=== PATIENT | male | born 1960 | race Caucasian/White ===

== ENCOUNTER 2020-11-30 12:59 | Observation (INO) | payer OTHER ==
[2020-11-30] MEDS ORDERED: NITROGLYCERIN OINT 1 INCH/GM PACKET TOPICAL STA (13:18)
[2020-11-30] MEDS ORDERED: ASPIRIN 81 MG PO STA ×2 (13:18→21:21)
--- NOTE | 2020-11-30 13:31 | ED ---
Chest Pain HPI - General Chief Complaint: Chest Pain Stated Complaint: Chest Pain Time Seen by Provider: 11/30/20 13:10 Source: patient, EMS Mode of arrival: EMS Limitations: no limitations - History of Present Illness Initial Comments: This 60-year-old male presents with a complaint of some chest pain. He describes this in his bilateral chest and described as a burning and pressure type sensation. The onset occurred approximately 3 days ago and it is been intermittent since. He states that he had some mild facial numbness. He has chronic neck pain. He does have a history of previous peptic ulcer disease and hiatal hernia and complains of some stomach upset at times as well. He denies any shortness of breath or difficulty in breathing. He does have a history of remote CABG and had cardiac stenting 3 years ago. He believes he had a stress test since then. He does present via ambulance and relates that he receive some sublingual nitroglycerin and route which may have helped somewhat. No other complaints or modifying factors. There is no leg pain or swelling or history DVT or PE. - Related Data Home Medications Medication Instructions Recorded Confirmed Aspirin EC [Ecotrin Low Dose] 81 mg PO DAILY 11/30/20 11/30/20 Isosorbide Mononitrate ER [Imdur] 30 mg PO DAILY 11/30/20 11/30/20 Metoprolol Succinate (ER) [Toprol 25 mg PO DAILY 11/30/20 11/30/20 Xl] lisinopriL 40 mg PO DAILY 11/30/20 11/30/20 Allergies Allergy/AdvReac Type Severity Reaction Status Date / Time codeine Allergy Unknown Verified 11/30/20 13:49 Review of Systems ROS Statement: Those systems with pertinent positive or pertinent negative responses have been documented in the HPI. ROS Other: All systems not noted in ROS Statement are negative. Past Medical History Past Medical History: Hyperlipidemia, Hypertension, Myocardial Infarction ([place]) History of Any Multi-Drug Resistant Organisms: None Reported Past Surgical History: Coronary Bypass/CABG, Heart Catheterization With Stent Past Psychological History: No Psychological Hx Reported Smoking Status: Current every day smoker Past Alcohol Use History: Occasional Past Drug Use History: None Reported General Exam - General Exam Comments Initial Comments: GENERAL: The patient is well nourished and well hydrated. VITAL SIGNS: Heart rate, blood pressure, respiratory rate reviewed as recorded i n nurse's notes. EYES: Pupils are round and reactive. Extraocular movements are intact. No conjunctival / lid redness or swelling. ENT: No external evidence of injury, swelling, or ecchymosis. Airway is patent. Throat is clear. NECK: Nontender. No swelling or evidence of injury. No subcutaneous emphysema. Trachea is midline. No thyroid mass. HEART: Regular rate and rhythm. Good peripheral pulses. LUNGS/CHEST: Breath sounds clear and equal bilaterally. No rales, rhonchi, or wheezes. No ecchymosis, subcutaneous emphysema, or tenderness. ABDOMEN: Abdomen soft without tenderness. No palpable masses or organomegaly. No peritoneal signs. No abdominal wall swelling or ecchymosis. EXTREMITIES: No extremity tenderness. Normal muscle tone and function. No thoracolumbar tenderness. NEUROLOGIC: Sensation is grossly intact. Cranial nerve exam reveals face is symmetrical, tongue is midline, speech is clear. SKIN: No abrasions or ecchymosis is noted. No induration or masses noted. PSYCHIATRIC: Alert and oriented. Appropriate behavior and judgment. Limitations: no limitations Course Vital Signs 11/30/20 11/30/20 11/30/20 13:04 13:06 14:00 Temperature 98 F Pulse Rate 81 71 66 Respiratory 18 17 13 Rate Blood Pressure 124/81 124/81 121/79 O2 Sat by Pulse 93 L 94 L 94 L Oximetry 11/30/20 15:00 Temperature Pulse Rate 68 Respiratory 15 Rate Blood Pressure 124/78 O2 Sat by Pulse 98 Oximetry Chest Pain MDM - MDM The patient was seen and examined. All diagnostics were reviewed. 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 An EKG was done which shows a normal sinus rhythm at a rate of 81. There is widened QRS noted and likely right bundle-branch block with associated ST-T wave changes. There is ST depression in the anteroseptal leads. The CO intervals 188, QRS duration is 148, and the QTC intervals 466. He is given aspirin as well as some Nitropaste to the anterior chest wall. The laboratory workup does show evidence of a slight elevation of the creatinine. The chest x-ray shows some chronic changes. The hemoglobin is slightly elevated as well. Overall, the patient has a fairly significant artifact history and it is felt as though he benefit from admission to the hospital and further treatment. Case will be discussed with Dr. Dunn and the patient will be admitted for observation for further cardiac evaluation and treatment. Disposition Clinical Impression: Chest pain, Unstable angina, Renal insufficiency, History of coronary artery disease, Right bundle branch block Disposition: ADMITTED IP TO THIS HOSP Condition: Good Is patient prescribed a controlled substance at d/c from ED?: No Time of Disposition: 16:01 Decision Date: 11/30/20 Decision Time: 16:01
--- NOTE | 2020-11-30 13:39 | XR ---
EXAMINATION TYPE: XR chest 2V DATE OF EXAM: 11/30/2020 COMPARISON: NONE HISTORY: Chest pain. TECHNIQUE: Frontal and lateral views of the chest are obtained. FINDINGS: Overlying sternal wires and mediastinal clips. There is chronic parenchymal changes withou t suspicious focal air space opacity, pleural effusion, or pneumothorax seen. The cardiac silhouette size is within normal limits. Multiple Old fracture deformities of the lateral right mid ribs are pr esent. IMPRESSION: Chronic changes without acute process.
[2020-11-30 13:45] LABS: Basophils # (A) 0.1 k/uL (0-0.2); Basophils % (A) 1 %; Eosinophils # (A) 0.1 k/uL (0-0.7); Eosinophils % (A) 1 %; HCT 54.7 % (39.0-53.0); HGB 18.3 gm/dL (13.0-17.5); Lymphocytes # (A) 1.6 k/uL (1.0-4.8); Lymphocytes % (A) 18 %; MCH 32.6 pg (25.0-35.0); MCHC 33.5 g/dL (31.0-37.0); MCV 97.4 fL (80.0-100.0); Monocytes # (A) 0.4 k/uL (0-1.0); Monocytes % (A) 5 %; Neutrophils # (A) 6.3 k/uL (1.3-7.7); Neutrophils % (A) 73 %; Platelet Count 250 k/uL (150-450); RBC 5.62 m/uL (4.30-5.90); RDW 13.1 % (11.5-15.5); WBC 8.6 k/uL (3.8-10.6)
[2020-11-30 13:53] LABS: Partial Thromboplastin Time 23.4 sec (22.0-30.0); Prothrombin Time 10.4 sec (9.0-12.0)
[2020-11-30 14:00] LABS: Calcium 9.4 mg/dL (8.4-10.2); Potassium 4.7 mmol/L (3.5-5.1); Total Protein 7.5 g/dL (6.3-8.2)
[2020-11-30] MEDS ORDERED: NITROGLYCERIN SL TABS 0.4 MG TAB SUBLINGUAL PRN (16:03)
[2020-11-30] MEDS ORDERED: NITROGLYCERIN OINT 1 INCH/GM PACKET TOPICAL SCH (18:00)
[2020-12-01 04:46] LABS: Cholesterol 203 mg/dL (<200); HDL Cholesterol 38 mg/dL (40-60); LDL Cholesterol,Calculated 119 mg/dL (0-99); Triglycerides 230 mg/dL (<150)
[2020-12-01] MEDS ORDERED: ASPIRIN 325 MG TAB PO SCH (09:00)
[2020-12-01] MEDS ORDERED: CAFFEINE CITRATE 60 MG/3 ML VIAL IV PRN (09:54)
[2020-12-01] MEDS ORDERED: REGADENOSON 0.4 MG/5 ML SYRINGE IV PRN (09:54)
[2020-12-01] MEDS ORDERED: AMINOPHYLLINE 500 MG/20 ML VIAL IV PRN (09:54)
[2020-12-01] MEDS ORDERED: ALPRAZolam 0.5 MG TAB PO PRN (10:51)
[2020-12-01] MEDS ORDERED: NITROGLYCERIN SL TABS 0.4 MG TAB SUBLINGUAL PRN (10:51)
[2020-12-01] MEDS ORDERED: ASPIRIN 325 MG TAB PO STA (10:51)
[2020-12-01] MEDS ORDERED: SODIUM CHLORIDE 0.9% 1,000 ML in EMPTY BAG 1 BAG IV ONE (10:51)
[2020-12-01] MEDS ORDERED: ATORVASTATIN 80 MG TAB PO STA (10:51)
[2020-12-01] MEDS ORDERED: ALPRAZolam 0.25 MG TAB PO PRN (10:51)
[2020-12-01] MEDS: lisinopriL 20 MG TAB PO SCH (11:11)
[2020-12-01] MEDS: METOPROLOL SUCCINATE (ER) 25 MG TAB.ER.24H PO SCH (11:11)
[2020-12-01] MEDS: ENOXAPARIN 40 MG/0.4 ML SYRINGE SQ SCH (11:11)
[2020-12-01] MEDS: ISOSORBIDE MONONITRATE ER 30 MG TAB.ER.24H PO SCH (11:11)
[2020-12-01] MEDS: ASPIRIN 81 MG PO SCH (11:12)
[2020-12-01 12:27] LABS: African American GFR (CKD) 72 (>60 ml/min/1.73 sqM); Anion Gap 10 mmol/L; Blood Urea Nitrogen 23 mg/dL (9-20); Calcium 9.5 mg/dL (8.4-10.2); Carbon Dioxide 22 mmol/L (22-30); Chloride 107 mmol/L (98-107); Glucose 102 mg/dL (74-99); Non-African American GFR(CKD) 62 (>60 ml/min/1.73 sqM); Potassium 4.7 mmol/L (3.5-5.1); Sodium 139 mmol/L (137-145)
--- NOTE | 2020-12-01 16:05 | P.CRDCN ---
History of Present Illness Consult date: 12/01/20 History of present illness: This is a 60-year-old gentleman with history of hyperlipidemia, hypertension, previous myocardial infarctions and also previous bypass surgery done several years ago. About 3 to 4 years ago, patient was admitted to [facility] in [place] with unstable angina. Patient had a cardiac catheterization and was found to have patent PINO graft to the LAD, vein graft to the RCA and vein graft to the first OM branch. The vein graft to the distal OM branch had a stenosis and had stent placement. Since then she hasn't had any cardiac follow- up. Patient now comes with complaints of chest pain which is aching and gas like discomfort. This lasted several hours. Yesterday and was unchanged with eating or any activity. Patient was concerned finally and came to the emergency room. By the time he came to the emergency room. The pain has resolved. His cardiac enzymes studies showed inconsistent elevation. His creatinine was 1.48 on admission. At the time of my examination patient is comfortable. Patient claims that he has problems with cervical disc and had Some discomfort in the chest area. He also has problem with the digestive system and pains that he gets a lot of gas. He could not disconnected between that and the cardiac pain. We discussed the option of having a stress test or cardiac catheterization. Patient preferred to have a cardiac cath, but his creatinine was 1.48. We decided to hydrate him and if the creatinine stabilizes, we'll may proceed with cardiac catheterization within next 24-48 hours. Meanwhile we'll continue with maximum medical therapy including heparin. Review of Systems As per the chart Past Medical History Past Medical History: Hyperlipidemia, Hypertension, Myocardial Infarction ([place]) Last Myocardial Infarction Date:: unk History of Any Multi-Drug Resistant Organisms: None Reported Past Surgical History: Coronary Bypass/CABG, Heart Catheterization With Stent Additional Past Surgical History / Comment(s): per pt 3-4 vessel CABG, Date of Last Stent Placement:: unk Past Psychological History: No Psychological Hx Reported Smoking Status: Current some day smoker Past Alcohol Use History: Occasional Additional Past Alcohol Use History / Comment(s): pt a social smoker Past Drug Use History: None Reported Medications and Allergies Home Medications Medication Instructions Recorded Confirmed Type Aspirin EC [Ecotrin Low Dose] 81 mg PO DAILY 11/30/20 11/30/20 History Isosorbide Mononitrate ER [Imdur] 30 mg PO DAILY 11/30/20 11/30/20 History Metoprolol Succinate (ER) [Toprol 25 mg PO DAILY 11/30/20 11/30/20 History Xl] lisinopriL 40 mg PO DAILY 11/30/20 11/30/20 History Allergies Allergy/AdvReac Type Severity Reaction Status Date / Time codeine Allergy Unknown Verified 11/30/20 13:49 Physical Exam Vitals: Vital Signs Temp Pulse Pulse Resp BP BP Pulse Ox 12/01/20 14:55 98.1 F 71 14 157/97 97 12/01/20 07:49 97.9 F 71 16 156/96 98 12/01/20 02:00 97.8 F 65 16 95/60 98 11/30/20 20:00 98 F 67 18 133/72 98 11/30/20 17:47 98.0 F 68 16 150/89 95 11/30/20 17:00 98 F 73 20 186/91 97 11/30/20 16:00 64 20 109/93 98 Intake and Output 12/01/20 12/01/20 12/01/20 06:59 14:59 22:59 Other: Voiding Method Toilet # Voids 2 GENERAL EXAM: Patient is alert and oriented and doesn't appear to be in any acute distress HEENT: Normocephalic. Normal reaction of pupils, equal size, normal range of extraocular motion. No erythema or exudates in the throat. NECK: No masses, no nuchal rigidity. CHEST: No chest wall deformity. Previous surgical scar LUNGS: Equal air entry with no crackles or wheeze. HEART: S1 and S2 normal with no audible mumurs or gallops. Regular rhythm, femorals equal on both sides.. ABDOMEN: No hepatosplenomegaly, normal bowel sounds, no guarding or rigidity. SKIN: No rashes CENTRAL NERVOUS SYSTEM: No focal deficits. EXTREMITIES: No cyanosis, clubbing or edema. Results 11/30/20 13:23 12/01/20 12:00 Cardiac Enzymes 11/30/20 11/30/20 11/30/20 Range/Units 16:36 19:18 23:52 Troponin I 0.033 0.035 H* 0.021 (0.000-0.034) ng/mL Lipids 11/30/20 Range/Units 13:23 Triglycerides 230 H (<150) mg/dL Cholesterol 203 H (<200) mg/dL HDL Cholesterol 38 L (40-60) mg/dL Comprehensive Metabolic Panel 12/01/20 Range/Units 12:00 Sodium 139 (137-145) mmol/L Potassium 4.7 (3.5-5.1) mmol/L Chloride 107 (98-107) mmol/L Carbon Dioxide 22 (22-30) mmol/L BUN 23 H (9-20) mg/dL Creatinine 1.25 (0.66-1.25) mg/dL Glucose 102 H (74-99) mg/dL Calcium 9.5 (8.4-10.2) mg/dL Current Medications Generic Name Dose Route Start Last Admin Trade Name Freq PRN Reason Stop Dose Admin Alprazolam 0.25 mg 12/01/20 10:51 Alprazolam 0.25 Mg Tab PO Q6HR PRN Mild Anxiety Alprazolam 0.5 mg 12/01/20 10:51 Alprazolam 0.5 Mg Tab PO Q6HR PRN Moderate Anxiety Aminophylline 100 mg 12/03/20 07:00 Aminophylline 500 Mg/20 Ml Vial IV 12/03/20 18:00 ONCE PRN Patient Response Aspirin 81 mg 12/01/20 09:00 12/01/20 11:12 Aspirin 81 Mg PO Not Given DAILY ISHAN Caffeine Citrate 60 mg 12/03/20 07:00 Caffeine Citrate 60 Mg/3 Ml Vial IV 12/03/20 18:00 ONCE PRN Patient Response Enoxaparin Sodium 40 mg 12/01/20 09:00 12/01/20 11:11 Enoxaparin 40 Mg/0.4 Ml Syringe SQ 40 mg DAILY ISHAN Administration Isosorbide Mononitrate 30 mg 12/01/20 09:00 12/01/20 11:11 Isosorbide Mononitrate Er 30 Mg Tab.Er.24h PO 30 mg DAILY ISHAN Administration Lisinopril 40 mg 12/01/20 09:00 12/01/20 11:11 Lisinopril 20 Mg Tab PO 40 mg DAILY ISHAN Administration Metoprolol Succinate 25 mg 12/01/20 09:00 12/01/20 11:11 Metoprolol Succinate (Er) 25 Mg Tab.Er.24h PO 25 mg DAILY ISHAN Administration Regadenoson 0.4 mg 12/03/20 07:00 Regadenoson 0.4 Mg/5 Ml Syringe IV 12/03/20 18:00 ONCE PRN Per Protocol Intake and Output 12/01/20 12/01/20 12/01/20 06:59 14:59 22:59 Other: Voiding Method Toilet # Voids 2 11/30/20 13:23 12/01/20 12:00 EKG Interpretations (text) Sinus rhythm with a right bundle branch block and left axis deviation Assessment and Plan (1) History of coronary artery disease Current Visit: Yes Status: Acute Code(s): Z86.79 - PERSONAL HISTORY OF OTHER DISEASES OF THE CIRCULATORY SYSTEM SNOMED Code(s): 577216329 (2) Renal insufficiency Current Visit: Yes Status: Acute Code(s): N28.9 - DISORDER OF KIDNEY AND URETER, UNSPECIFIED SNOMED Code(s): 825816763 (3) Right bundle branch block Current Visit: Yes Status: Acute Code(s): I45.10 - UNSPECIFIED RIGHT BUNDLE- BRANCH BLOCK SNOMED Code(s): 23517666 Plan: Continue with current medical therapy with nitrates, beta blockers, aspirin, and also heparin along with lipid-lowering agent. We'll continue to monitor his renal function. May consider either cardiac catheterization within next 24-48 hours for a Lexiscan stress test. Prognosis is guarded
--- NOTE | 2020-12-01 16:47 | ECHOF ---
Referral Reason:cp MEASUREMENTS -------- HEIGHT: 165.1 cm WEIGHT: 85.3 kg BP: RVIDd: 3.3 cm (< 3.3) IVSd: 1.3 cm (0.6 - 1.1) LVIDd: 3.9 cm (3.9 - 5.3) LVPWd: 1.3 cm (0.6 - 1.1) IVSs: 1.5 cm LVIDs: 3.2 cm LVPWs: 1.1 cm LA Diam: 3.4 cm (2.7 - 3.8) LAESV Index (A-L): 16.90 ml/m Ao Diam: 3.6 cm (2.0 - 3.7) AV Cusp: 1.6 cm (1.5 - 2.6) MV EXCURSION: 19.436 mm (> 18.000) MV EF SLOPE: 67 mm/s (70 - 150) EPSS: 0.7 cm MV E Nima: 0.52 m/s MV DecT: 248 ms MV A Nima: 0.67 m/s MV E/A Ratio: 0.77 RAP: 5.00 mmHg RVSP: 13.19 mmHg FINDINGS -------- BBB This was a technically adequate study. The left ventricular size is normal. There is mild concentric left ventricular hypertrophy. Overa ll left ventricular systolic function is mildly impaired with, an EF between 45 - 50 %. Posterior h ypokinesis The right ventricle is normal in size. Normal LA size by volume 22+/-6 ml/m2. The right atrial size is normal. The aortic valve is trileaflet, and appears structurally normal. No aortic stenosis or regurgitation. Mild mitral regurgitation is present. Mild tricuspid regurgitation present. Right ventricular systolic pressure is normal at < 35 mmHg. Trace/mild (physiologic) pulmonic regurgitation. The aortic root size is normal. There is no pericardial effusion. CONCLUSIONS -------- 1. The left ventricular size is normal. 2. There is mild concentric left ventricular hypertrophy. 3. Overall left ventricular systolic function is mildly impaired with, an EF between 45 - 50 %. 4. Posterior hypokinesis 5. The right ventricle is normal in size. 6. Normal LA size by volume 22+/-6 ml/m2. 7. The right atrial size is normal. 8. Mild mitral regurgitation is present. 9. Mild tricuspid regurgitation present. 10. Trace/mild (physiologic) pulmonic regurgitation. 11. The aortic root size is normal. 12. There is no pericardial effusion. SURGICAL SERVICES TECH: Sandy Orozco RDCS
--- NOTE | 2020-12-01 20:40 | P.HPIM ---
History of Present Illness H&P Date: 12/01/20 Chief Complaint: Chest pain History of presenting complaint: This is a pleasant 60-year-old patient of Dr. Parmjit Mckeon. Chronic stable medical conditions include hypertension, hyperlipidemia, chronic kidney disease. Patient has no coronary bypass with stents done about 15 years ago. A couple of days patient been noticing that is becoming lightheaded. Also developing aching sensation across the chest. Mainly with activity and better with lying down. Does not radiate no shortness of breath no perspiration. Does feel tired. Presented to the ER with the same. Patient does smoke a few cigarettes a day. Review of systems: GEN.: Tired EYES: None HEENT: None NECK: None RESPIRATORY: None CARDIOVASCULAR: As above GASTROINTESTINAL: None GENITOURINARY: None MUSCULOSKELETAL: None LYMPHATICS: None HEMATOLOGICAL: None PSYCHIATRY: None NEUROLOGICAL: None Past medical history to include: Hypertension, hyperlipidemia, coronary artery disease with bypass and stent, chronic kidney disease Social history: Drinks about 3 beers a day. Used to work in the [employer]. Smokes 2-3 cigarettes a day. Lives with his brother. Family history: Reviewed, noncontributory to presentation Physical examination: VITAL SIGNS: 98, 81, 18, 1 24 x 81, 93% room air-upon presentation GENERAL: BMI 30.3, laying in bed, comfortable. EYES: Pupils equal. Conjunctiva normal. HEENT: External appearance of nose and ears normal, oral cavity grossly normal. NECK: JVD not raised; masses not palpable. HEART: First and second heart sounds are normal; no edema. LUNGS: Respiratory rate normal; clear to auscultation. ABDOMEN: Soft, nontender, liver spleen not palpable, no masses palpable. PSYCH: Alert and oriented x3; mood and affect normal. NEUROLOGICAL: Cranial nerves grossly intact; no facial asymmetry, power and sensation grossly intact. LYMPHATICS: No lymph nodes palpable in the axilla and neck INVESTIGATIONS, reviewed in the clinical context: Potassium 4.7 creatinine 1.25 Admitting labs: White count 8.6 hemoglobin 18.3 platelets 250 potassium 4.7 bun 27 creatinine 1.49 Troponin I less than 0.012, 0.033, 0.035 LDL 119 EKG tracing personally reviewed by me-intraventricular block, T-wave changes Chest x-ray film personally reviewed by me-appears to have chronic changes. Multiple old fracture deformities reported. Assessment: -Possible acute non-Q wave AL in a patient with known coronary artery disease with lightheadedness chest pain for last 2 days, manifesting with activity -Coronary artery disease but history of bypass and stent -Hyperlipidemia -Essential hypertension -Chronic kidney disease stage III likely nephrosclerosis -Chronic nicotine dependence patient cigarette smoker Plan: Patient's currently on aspirin Lovenox, nitrates, Zestril and Toprol-XL. Seen by cardiology. Planning cardiac catheterization. Patient will be gently hydrated for his kidney function. Care was discussed with the patient. Questions answered Past Medical History Past Medical History: Hyperlipidemia, Hypertension, Myocardial Infarction ([place]) Last Myocardial Infarction Date:: unk History of Any Multi-Drug Resistant Organisms: None Reported Past Surgical History: Coronary Bypass/CABG, Heart Catheterization With Stent Additional Past Surgical History / Comment(s): per pt 3-4 vessel CABG, Date of Last Stent Placement:: unk Past Psychological History: No Psychological Hx Reported Smoking Status: Current some day smoker Past Alcohol Use History: Occasional Additional Past Alcohol Use History / Comment(s): pt a social smoker Past Drug Use History: None Reported Medications and Allergies Home Medications Medication Instructions Recorded Confirmed Type Aspirin EC [Ecotrin Low Dose] 81 mg PO DAILY 11/30/20 11/30/20 History Isosorbide Mononitrate ER [Imdur] 30 mg PO DAILY 11/30/20 11/30/20 History Metoprolol Succinate (ER) [Toprol 25 mg PO DAILY 11/30/20 11/30/20 History Xl] lisinopriL 40 mg PO DAILY 11/30/20 11/30/20 History Allergies Allergy/AdvReac Type Severity Reaction Status Date / Time codeine Allergy Unknown Verified 11/30/20 13:49 Physical Exam Vitals: Vital Signs Temp Pulse Pulse Resp BP BP Pulse Ox 12/01/20 07:49 97.9 F 71 16 156/96 98 12/01/20 02:00 97.8 F 65 16 95/60 98 11/30/20 20:00 98 F 67 18 133/72 98 11/30/20 17:47 98.0 F 68 16 150/89 95 11/30/20 17:00 98 F 73 20 186/91 97 11/30/20 16:00 64 20 109/93 98 11/30/20 15:00 68 15 124/78 98 11/30/20 14:00 66 13 121/79 94 L 11/30/20 13:06 71 17 124/81 94 L 11/30/20 13:04 98 F 81 18 124/81 93 L Intake and Output 11/30/20 12/01/20 12/01/20 22:59 06:59 14:59 Other: Voiding Method Toilet Toilet # Voids 1 2 Weight 85.275 kg Results CBC & Chem 7: 11/30/20 13:23 12/01/20 12:00 Labs: Abnormal Lab Results - Last 24 Hours (Table) 11/30/20 11/30/20 11/30/20 Range/Units 13:23 13:23 13:23 Hgb 18.3 H (13.0-17.5) gm/dL Hct 54.7 H (39.0-53.0) % Sodium 134 L (137-145) mmol/L Carbon Dioxide 20 L (22-30) mmol/L BUN 27 H (9-20) mg/dL Creatinine 1.49 H (0.66-1.25) mg/dL Glucose 161 H (74-99) mg/dL Troponin I (0.000-0.034) ng/mL Triglycerides 230 H (<150) mg/dL Cholesterol 203 H (<200) mg/dL LDL Cholesterol, Calc 119 H (0-99) mg/dL HDL Cholesterol 38 L (40-60) mg/dL 11/30/20 Range/Units 19:18 Hgb (13.0-17.5) gm/dL Hct (39.0-53.0) % Sodium (137-145) mmol/L Carbon Dioxide (22-30) mmol/L BUN (9-20) mg/dL Creatinine (0.66-1.25) mg/dL Glucose (74-99) mg/dL Troponin I 0.035 H* (0.000-0.034) ng/mL Triglycerides (<150) mg/dL Cholesterol (<200) mg/dL LDL Cholesterol, Calc (0-99) mg/dL HDL Cholesterol (40-60) mg/dL Thrombosis Risk Factor Assmnt - Choose All That Apply Any of the Below Risk Factors Present?: Yes Each Factor Represents 1 point: Obesity (BMI >25) Other Risk Factors: Yes Each Risk Factor Represents 2 Points: Age 61-74 years Other congenital or acquired thrombophilia - If yes, enter type in comment: No Thrombosis Risk Factor Assessment Total Risk Factor Score: 3 Thrombosis Risk Factor Assessment Level: Moderate Risk
[2020-12-02] MEDS ORDERED: HEPARIN SODIUM,PORCINE 2,500 UNIT in SODIUM CHLORIDE 0.9% 250 ML IRRIGATION PRN (07:00)
[2020-12-02] MEDS ORDERED: HEPARIN SODIUM,PORCINE 10,000 UNIT in SODIUM CHLORIDE 0.9% 1,000 ML IRRIGATION PRN (07:00)
[2020-12-02 07:46] VITALS: RESP 16; TEMP 97.9
[2020-12-02] MEDS ORDERED: ATORVASTATIN 80 MG TAB PO STA (08:44)
[2020-12-02] MEDS ORDERED: SODIUM CHLORIDE 0.9% 1,000 ML in EMPTY BAG 1 BAG IV ONE (08:44)
[2020-12-02] MEDS ORDERED: NITROGLYCERIN SL TABS 0.4 MG TAB SUBLINGUAL PRN (08:44)
[2020-12-02] MEDS ORDERED: ALPRAZolam 0.5 MG TAB PO PRN (08:44)
[2020-12-02] MEDS ORDERED: ASPIRIN 325 MG TAB PO STA (08:44)
[2020-12-02] MEDS ORDERED: ALPRAZolam 0.25 MG TAB PO PRN (08:44)
[2020-12-02 08:55] LABS: African American GFR (CKD) 83.5 (60.0-200.0); Anion Gap 7.8 mmol/L (4.00-12.00); BUN/Creat Ratio 18.18 Ratio (12.00-20.00); Calcium 8.2 mg/dL (8.7-10.3); Carbon Dioxide 23.2 mmol/L (21.6-31.8); Non-African American GFR(CKD) 72.1 (60.0-200.0); Potassium 4.5 mmol/L (3.5-5.5)
[2020-12-02] MEDS: lisinopriL 20 MG TAB PO SCH (09:15)
[2020-12-02] MEDS: ISOSORBIDE MONONITRATE ER 30 MG TAB.ER.24H PO SCH (09:15)
[2020-12-02] MEDS: METOPROLOL SUCCINATE (ER) 25 MG TAB.ER.24H PO SCH (09:15)
[2020-12-02] MEDS: ENOXAPARIN 40 MG/0.4 ML SYRINGE SQ SCH (09:16)
[2020-12-02] MEDS: ASPIRIN 81 MG PO SCH (09:16)
[2020-12-02] MEDS ORDERED: fentaNYL (PF) 50 MCG/ML 2 ML AMP ONE (09:51)
[2020-12-02] MEDS ORDERED: LIDOCAINE 1% INJ 10MG/ML (20 ML MDV) ONE (09:51)
[2020-12-02] MEDS ORDERED: IV FLUID CONTINUATION 1,000 ML IV ONE (10:06)
[2020-12-02] MEDS ORDERED: fentaNYL (PF) 50 MCG/ML 2 ML AMP IV ONE (10:15)
[2020-12-02] MEDS: MIDAZOLAM 2 MG/2 ML VIAL IV ONE ×2 (10:15→10:51)
[2020-12-02] MEDS ORDERED: LIDOCAINE 1% INJ 10MG/ML (20 ML MDV) SQ ONE (10:18)
[2020-12-02] MEDS ORDERED: IOPAMIDOL-370 125ML BTL INJ ONE (10:53)
[2020-12-02] MEDS ORDERED: RX INFO: IV CONTRAST WAS GIVEN 1 EACH MISC MISCELLANE PRN (11:03)
--- NOTE | 2020-12-02 11:13 | P.CARDCATH ---
Date of Procedure: 12/02/20 Postoperative Diagnosis: Unstable angina and abnormal troponin Procedure(s) Performed: Left heart catheterization, selective injection of the vein grafts and the PINO graft Description of Procedure: HISTORY: . 60-year-old gentleman with history of previous bypass surgery with the PINO graft to LAD and vein graft 22 OM branches, vein graft to the RCA and PINO graft to the LAD. Patient seemed to have stent placement of the proximal circumflex and also vein graft to the OM 2. Patient is admitted to the hospital with complaints of prolonged chest pain and mildly elevated troponin values. In view of his history, patient is advised to have a cardiac catheterization for definitive diagnosis. CONSENT:I have discussed the risks, benefits and alternative therapies for the above-mentioned procedure and for both sedation/analgesia as well as necessary blood product administration, if indicated, as they pertain to this patient. The patient has indicated understanding and acceptance of the risks and procedures discussed. PROCEDURE: Patient was brought to the lab in a fasting state. Patient was given some IV sedation. The right groin is infiltrated with lidocaine and right femoral artery was entered using Seldinger technique. A 6-Arabic catheter was left in place and selective coronary arteriography and selective injection of the vein grafts and the PINO graft was performed. Patient tolerated the procedure well. Femoral angiogram was performed and Angio-Seal was applied for hemostasis. No immediate complications were noted and patient was transferred to to [facility] in a stable condition Conscious Sedation: Versed 2mg Fentanyl 50 g Duration 41minutes HEMODYNAMICS: the aortic pressure was about 110/70. Left ventricular end- diastolic pressure was not measured SELECTIVE CORONARY ARTERIOGRAPHY: LEFT MAIN: Normal length free of any significant occlusive disease THE LEFT ANTERIOR DESCENDING CORONARY ARTERY: Totally occluded in midportion of the diagonal branch THE LEFT CIRCUMFLEX AND IS CORONARY ARTERY: . Mild ostial stenosis. There is a patent stent in the proximal circumflex. OM branchs subtotal occlusion THE RIGHT CORONARY ARTERY: . Tight stenosis involving the proximal portion and totally occluded in midportion. The PINO graft to the LAD: This is patent throat its length and also distal anastomosis. There is mild stenosis of the distal anastomosis. The distal LAD is free of occlusive disease The vein graft to the first OM branch. This is patent at the proximal and distal anastomosis. The first OM branch is small in caliber free of occlusive disease. The vein graft to the RCA: This is patent at the pr oximal and distal anastomosis. The distal RCA is free of any significant occlusive disease LEFT ventriculography: Not performed FINAL IMPRESSION: Total occlusion of the mid LAD OM branches and mid RCA. Patent PINO graft to the LAD and vein graft to OM branch. The right coronary artery. Distended the vein graft to the OM 2 is totally occluded proximally PLAN: Maximum medical therapy and this factor modification PROGNOSIS: fair
[2020-12-02] MEDS ORDERED: SODIUM CHLORIDE 0.9% 1,000 ML IV SCH (11:15)
[2020-12-02 14:00] VITALS: BP 133/76; PULSE 63
--- NOTE | 2020-12-02 18:27 | P.DS ---
Providers Date of admission: 11/30/20 16:03 Expected date of discharge: 12/02/20 Attending physician: Jose G Dunn Consults: 11/30/20 16:16 Consult Physician Urgent Consulting Provider: [facility] Consult Reason/Comments: chest pain, hx ascad s/p cabg Do you want consulting provider notified?: Yes Primary care physician: [facility] Course: Chief Complaint: Chest pain History of presenting complaint: This is a pleasant 60-year-old patient of Dr. Parmjit Mckeon. Chronic stable medical conditions include hypertension, hyperlipidemia, chronic kidney disease. Patient has no coronary bypass with stents done about 15 years ago. A couple of days patient been noticing that is becoming lightheaded. Also developing aching sensation across the chest. Mainly with activity and better with lying down. Does not radiate no shortness of breath no perspiration. Does feel tired. Presented to the ER with the same. Patient does smoke a few cigarettes a day. Patient ruled out for an acute non-Q-wave [place]. Today-underwent cardiac catheterization. Found to some chronic changes. More details and cardiology procedure note. Decision was made to manage the patient clinically. Patient was cleared by Dr. Pardo for discharge discussed with the patient. Consultation: Dr. Aguiar poly-cardiology Past medical history to include: Hypertension, hyperlipidemia, coronary artery disease with bypass and stent, chronic kidney disease Social history: Drinks about 3 beers a day. Used to work in [employer] industry. Smokes 2-3 cigarettes a day. Lives with his brother. Family history: Reviewed, noncontributory to presentation Physical examination: VITAL SIGNS: 63, 16, 133 with 76, 96% room air GENERAL: BMI 30.3, laying in bed, comfortable. EYES: Pupils equal. Conjunctiva normal. HEENT: External appearance of nose and ears normal, oral cavity grossly normal. NECK: JVD not raised; masses not palpable. HEART: First and second heart sounds are normal; no edema. LUNGS: Respiratory rate normal; clear to auscultation. ABDOMEN: Soft, nontender, liver spleen not palpable, no masses palpable. PSYCH: Alert and oriented x3; mood and affect normal. INVESTIGATIONS, reviewed in the clinical context: December 02: Potassium 4.5 creatinine 1.1 Potassium 4.7 creatinine 1.25 Admitting labs: White count 8.6 hemoglobin 18.3 platelets 250 potassium 4.7 bun 27 creatinine 1.49 Troponin I less than 0.012, 0.033, 0.035, 0.021 LDL 119 EKG tracing personally reviewed by me-intraventricular block, T-wave changes Chest x-ray film personally reviewed by me-appears to have chronic changes. Multiple old fracture deformities reported. Assessment: -Possible acute non-Q wave [place] -Coronary artery disease but history of bypass and stent -Hyperlipidemia -Essential hypertension -Chronic kidney disease stage III likely nephrosclerosis -Chronic nicotine dependence patient cigarette smoker -Cardiac catheterization showing chronic changes. Disposition: Home Patient Condition at Discharge: Stable Plan - Discharge Summary Discharge Rx Participant: No New Discharge Prescriptions: New Isosorbide Mononitrate ER [Imdur] 60 mg PO DAILY #30 tab Atorvastatin Calcium [Lipitor] 40 mg PO HS #30 tablet Continue lisinopriL 40 mg PO DAILY Metoprolol Succinate (ER) [Toprol XL] 25 mg PO DAILY Aspirin EC [Ecotrin Low Dose] 81 mg PO DAILY Discontinued Isosorbide Mononitrate ER [Imdur] 30 mg PO DAILY Discharge Medication List Aspirin EC [Ecotrin Low Dose] 81 mg PO DAILY 11/30/20 [History] Metoprolol Succinate (ER) [Toprol XL] 25 mg PO DAILY 11/30/20 [History] lisinopriL 40 mg PO DAILY 11/30/20 [History] Atorvastatin Calcium [Lipitor] 40 mg PO HS #30 tablet 12/02/20 [Rx] Isosorbide Mononitrate ER [Imdur] 60 mg PO DAILY #30 tab 12/02/20 [Rx] Follow up Appointment(s)/Referral(s): Avinash Mckeon MD [REFERRING] - 1 Week Ryder Marinelli MD [STAFF PHYSICIAN] - 1 Week (Call office on Thursday to schedule a follow up appointment for a Site Check in one week with Dr. Marinelli) Patient Instructions/Handouts: *Surgery [facility] - After Heart Catheterization - Grocery Clerk Checking Instructions Activity/Diet/Wound Care/Special Instructions: See Activity Restriction Instructions
[2020-12-03] MEDS ORDERED: CAFFEINE CITRATE 60 MG/3 ML VIAL IV PRN (07:00)
[2020-12-03] MEDS ORDERED: AMINOPHYLLINE 500 MG/20 ML VIAL IV PRN (07:00)
[2020-12-03] MEDS ORDERED: REGADENOSON 0.4 MG/5 ML SYRINGE IV PRN (07:00)
[2020-12-03] MEDS ORDERED: HEPARIN SODIUM,PORCINE 2,500 UNIT in SODIUM CHLORIDE 0.9% 250 ML IRRIGATION PRN (07:00)
[2020-12-03] MEDS ORDERED: HEPARIN SODIUM,PORCINE 10,000 UNIT in SODIUM CHLORIDE 0.9% 1,000 ML IRRIGATION PRN (07:00)
== END 2020-12-02 18:11 | disposition home or self-care (01) ==
LOC: EC 12:59 → 6NMEDSUR 16:03
PROVIDERS: ADMIT Hospitalist; ATTEND Hospitalist
DX: R07.89 Other chest pain (principal); I12.9 Hypertensive chronic kidney disease with stage 1 through stage 4 chronic kidney disease, or unspecified chronic kidney disease; N18.30 Chronic kidney disease, stage 3 unspecified; I25.10 Atherosclerotic heart disease of native coronary artery without angina pectoris; R79.89 Other specified abnormal findings of blood chemistry; I45.10 Unspecified right bundle-branch block; G89.29 Other chronic pain; M54.2 Cervicalgia; K44.9 Diaphragmatic hernia without obstruction or gangrene; R20.0 Anesthesia of skin; E78.5 Hyperlipidemia, unspecified; F17.210 Nicotine dependence, cigarettes, uncomplicated; R42 Dizziness and giddiness; E66.9 Obesity, unspecified; Z68.30 Body mass index [BMI] 30.0-30.9, adult; Z79.82 Long term (current) use of aspirin; Z79.899 Other long term (current) drug therapy; Z88.5 Allergy status to narcotic agent; Z87.11 Personal history of peptic ulcer disease; Z95.1 Presence of aortocoronary bypass graft; Z95.5 Presence of coronary angioplasty implant and graft; I25.2 Old myocardial infarction; Z87.81 Personal history of (healed) traumatic fracture
CPT/HCPCS: 93005 ×2; 99285; 36415; 93306; 93455; 80061; 80053; 80048 ×2; 83690; 83735; 84484; 85025; 85610; 85730; 71046; G0378 ×3; C1769 ×4; C1760; C1894; J2250; J2001; J1650 ×2; J3010; Q9967

== ENCOUNTER 2024-09-13 10:09 | Emergency (ER) | payer BC, OTHER ==
[2024-09-13 10:18] VITALS: TEMP 97.6
--- NOTE | 2024-09-13 10:45 | ED ---
Arrhythmia/Palpitations HPI - General Chief Complaint: Arrhythmia/Palpitations Stated Complaint: high heart rate Time Seen by Provider: 09/13/24 10:22 Source: patient, RN notes reviewed Mode of arrival: ambulatory Limitations: no limitations - History of Present Illness Initial Comments: This is a 62-year-old male with history of hypertension, AMI with CABG and stents and CKD stage III presenting with elevated heart rate x 1 day. Patient states he was attending a cardiology appointment regarding medication change with a new research program internship when it was noted he had an elevated heart rate and was sent to the ER for further evaluation. Patient denies palpitations, chest pain, radiating pain, pallor, sweating, dyspnea, presyncope. Patient endorses early 30-year history of hypertension, stating is often in the 150s to 160s. Patient states he is currently taking metoprolol, nifedipine, hydrochlorothiazide and lisinopril for hypertension. Patient also endorses history of GERD that is worsened for the past 2 weeks. Describes gastric pain as dull and burning (10) and that worsens after eating (9 out of 10). Endorses recent constipation and diarrhea without hematochezia or melena. Patient denies fever, chills, fatigue, dizziness, chest pain, dyspnea, nausea, vomiting. MD Complaint: rapid heart beat Onset/Timin -: days(s) Context: occurred during rest Associated Symptoms: anxiety - Related Data Home Medications Medication Instructions Recorded Confirmed Atorvastatin [Lipitor] 20 mg PO HS 09/13/24 09/13/24 Metoprolol Succinate (ER) [Toprol 50 mg PO DAILY 09/13/24 09/13/24 Xl] NIFEdipine XL [Procardia XL] 60 mg PO DAILY 09/13/24 09/13/24 Pantoprazole [Protonix] 40 mg PO DAILY 09/13/24 09/13/24 Previous Rx's Medication Instructions Recorded hydroCHLOROthiazide 25 mg PO DAILY 90 Days #90 tablet 06/26/22 Famotidine [Pepcid] 20 mg PO BID #60 tablet 09/13/24 Pantoprazole [Protonix] 40 mg PO DAILY #30 tab 09/13/24 Allergies Allergy/AdvReac Type Severity Reaction Status Date / Time codeine AdvReac Sweats, Verified 09/13/24 12:31 shaking, fever Review of Systems ROS Statement: Those systems with pertinent positive or pertinent negative responses have been documented in the HPI. ROS Other: All systems not noted in ROS Statement are negative. Past Medical History Past Medical History: Hyperlipidemia, Hypertension, Myocardial Infarction ([place]) Additional Past Medical History / Comment(s): [place] 2002 and possible nonQ wave [place] in 2020, CKD III Last Myocardial Infarction Date:: unk History of Any Multi-Drug Resistant Organisms: None Reported Past Surgical History: Coronary Bypass/CABG, Heart Catheterization With Stent Additional Past Surgical History / Comment(s): per pt 3-4 vessel CABG, Past Anesthesia/Blood Transfusion Reactions: No Reported Reaction Date of Last Stent Placement:: unk Past Psychological History: No Psychological Hx Reported Smoking Status: Current some day smoker Past Alcohol Use History: Occasional Past Drug Use History: None Reported - Past Family History Father Family Medical History: Myocardial Infarction ([place]) Additional Family Medical History / Comment(s): Father had a [place] between ages 45- 50 Mother Family Medical History: Coronary Artery Disease (CAD), Vascular Disorder Additional Family Medical History / Comment(s): Cardiovascular disease. General Exam Limitations: no limitations General appearance: alert, in no apparent distress Head exam: Present: atraumatic, normocephalic, normal inspection Eye exam: Present: normal appearance, PERRL, EOMI. Absent: scleral icterus, conjunctival injection, periorbital swelling ENT exam: Present: normal exam, mucous membranes moist Neck exam: Present: normal inspection. Absent: tenderness, meningismus, ly mphadenopathy Respiratory exam: Present: normal lung sounds bilaterally. Absent: respiratory distress, wheezes, rales, rhonchi, stridor Cardiovascular Exam: Present: regular rate, irregular rhythm, normal heart sounds. Absent: systolic murmur, diastolic murmur, rubs, gallop, clicks GI/Abdominal exam: Present: soft, normal bowel sounds. Absent: distended, tenderness, guarding, rebound, rigid Extremities exam: Present: normal inspection, full ROM, normal capillary refill. Absent: tenderness, pedal edema, joint swelling, calf tenderness Back exam: Present: normal inspection Neurological exam: Present: alert, oriented X3, CN II-XII intact Psychiatric exam: Present: normal affect, normal mood Skin exam: Present: warm, dry, intact, normal color. Absent: rash Course Vital Signs 09/13/24 09/13/24 09/13/24 10:15 11:12 12:16 Temperature 97.6 F Pulse Rate 83 61 64 Respiratory 18 16 20 Rate Blood Pressure 163/108 148/88 154/100 O2 Sat by Pulse 97 93 L 95 Oximetry 09/13/24 14:06 Temperature Pulse Rate 61 Respiratory 18 Rate Blood Pressure 129/80 O2 Sat by Pulse 100 Oximetry Medical Decision Making - Medical Decision Making Was pt. sent in by a medical professional or institution (, PA, MEDICAL LIBRARY ASSISTANT, urgent care, hospital, or penitentiary...) When possible be specific @ -No Did you speak to anyone other than the patient for history (EMS, parent, family, police, friend...)? What history was obtained from this source @ -No Did you review nursing and triage notes (agree or disagree)? Why? @ -I reviewed and agree with nursing and triage notes Were old charts reviewed (outside hosp., previous admission, EMS record, old EKG, old radiological studies, urgent care reports/EKG's, penitentiary records)? Report findings @ -No old charts were reviewed Differential Diagnosis (chest pain, altered mental status, abdominal pain women, abdominal pain men, vaginal bleeding, weakness, fever, dyspnea, syncope, headache, dizziness, GI bleed, back pain, seizure, CVA, palpatations, mental health, musculoskeletal)? @ -Differential Chest Pain: Stable Angina, Unstable Angina, STEMI, NSTEMI Aortic Dissection, Pneumothorax, Musculoskeletal, Esophageal Spasm GERD, Cholecystitis, Pancreatitis, Zoster, this is not meant to be an all-inclusive list. EKG interpreted by me (3pts min.). @ -Sinus rhythm with first-degree AV block and right bundle branch block and occasional PACs. Prolonged QTc. Ventricular rate 67 bpm, ZAID 243 ms, QRS duration 157 ms, QTc 450 ms. X-rays interpreted by me (1pt min.). @ -Chest x-ray was unremarkable without infiltrates, pulmonary edema or pneumothorax. CT interpreted by me (1pt min.). @ -None done U/S interpreted by me (1pt. min.). @ -None done What testing was considered but not performed or refused? (CT, X-rays, U/S, labs)? Why? @ -None What meds were considered but not given or refused? Why? @ -None Did you discuss the management of the patient with other professionals (professionals i.e. , PA, MEDICAL LIBRARY ASSISTANT, lab, RT, psych nurse, social contact worker, music internship, teacher, military police officer, case loader operator)? Give summary @ -No Was smoking cessation discussed for >3mins.? @ -No Was critical care preformed (if so, how long)? @ -No Were there social determinants of health that impacted care today? How? (Homelessness, low income, unemployed, alcoholism, drug addiction, transportation, low edu. Level, literacy, decrease access to med. care, [facility], rehab)? @ -No Was there de-escalation of care discussed even if they declined (Discuss DNR or withdrawal of care, Hospice)? DNR status @ -No What co-morbidities impacted this encounter? (DM, HTN, Smoking, COPD, CAD, Cancer, CVA, ARF, Chemo, Hep., AIDS, mental health diagnosis, sleep apnea, morbid obesity)? @ -Hypertension, CKD Was patient admitted / discharged? Hospital course, mention meds given and route, prescriptions, significant lab abnormalities, going to OR and other pertinent info. @ -Discharge. Twelve-lead showed sinus rhythm with first-degree AV block and right bundle branch block. Chest x-ray was unremarkable. Patient notes significant relief of abdominal pain following IV administration of Pepcid and Protonix. Spontaneous resolution of hypertension followed shortly afterwards. Pantoprazole and H2 harper sent to patient's pharmacy. Undiagnosed new problem with uncertain prognosis? @ -No Drug Therapy requiring intensive monitoring for toxicity (Heparin, Nitro, Insulin, Cardizem)? @ -No Were any procedures done? @ -No Diagnosis/symptom? @ -Acid reflux, hypertension Acute, or Chronic, or Acute on Chronic? @ -Acute Uncomplicated (without systemic symptoms) or Complicated (systemic symptoms)? @ -Uncomplicated Side effects of treatment? @ -No Exacerbation, Progression, or Severe Exacerbation? @ -No Poses a threat to life or bodily function? How? (Chest pain, [place], [place], pneumonia, PE, COPD, DKA, ARF, appy, cholecystitis, CVA, Diverticulitis, Homicidal, Suicidal, threat to staff... and all critical care pts) @ -No - Lab Data Result diagrams: 09/13/24 12:07 09/13/24 12:07 Lab Results 09/13/24 09/13/24 09/13/24 Range/Units 12:07 12:07 12:07 WBC 8.7 (3.8-10.6) k/uL RBC 5.52 (4.30-5.90) m/uL Hgb 18.7 H (13.0-17.5) gm/dL Hct 54.2 H (39.0-53.0) % MCV 98.2 (80.0-100.0) fL MCH 33.8 (25.0-35.0) pg MCHC 34.5 (31.0-37.0) g/dL RDW 13.0 (11.5-15.5) % Plt Count 257 (150-450) k/uL MPV 8.4 Neutrophils % 76 % Lymphocytes % 16 % Monocytes % 5 % Eosinophils % 1 % Basophils % 1 % Neutrophils # 6.6 (1.3-7.7) k/uL Lymphocytes # 1.4 (1.0-4.8) k/uL Monocytes # 0.4 (0-1.0) k/uL Eosinophils # 0.1 (0-0.7) k/uL Basophils # 0.1 (0-0.2) k/uL PT 11.6 (10.0-12.5) sec INR 1.1 (<1.2) APTT 22.8 (22.0-30.0) sec Sodium 140 (137-145) mmol/L Potassium 3.3 L (3.5-5.1) mmol/L Chloride 98 (98-107) mmol/L Carbon Dioxide 35 H (22-30) mmol/L Anion Gap 7 mmol/L BUN 34 H (9-20) mg/dL Creatinine 1.72 H (0.66-1.25) mg/dL Est GFR (CKD-EPI)AfAm 47 (>60 ml/min/1.73 sqM) Est GFR (CKD-EPI)NonAf 41 (>60 ml/min/1.73 sqM) Glucose 99 (74-99) mg/dL Calcium 10.0 (8.4-10.2) mg/dL Magnesium 1.6 (1.6-2.3) mg/dL Total Bilirubin 1.0 (0.2-1.3) mg/dL AST 28 (17-59) U/L ALT 18 (4-49) U/L Alkaline Phosphatase 97 (38-126) U/L Troponin I (0.000-0.034) ng/mL Total Protein 7.2 (6.3-8.2) g/dL Albumin 3.9 (3.5-5.0) g/dL 09/13/24 Range/Units 12:07 WBC (3.8-10.6) k/uL RBC (4.30-5.90) m/uL Hgb (13.0-17.5) gm/dL Hct (39.0-53.0) % MCV (80.0-100.0) fL MCH (25.0-35.0) pg MCHC (31.0-37.0) g/dL RDW (11.5-15.5) % Plt Count (150-450) k/uL MPV Neutrophils % % Lymphocytes % % Monocytes % % Eosinophils % % Basophils % % Neutrophils # (1.3-7.7) k/uL Lymphocytes # (1.0-4.8) k/uL Monocytes # (0-1.0) k/uL Eosinophils # (0-0.7) k/uL Basophils # (0-0.2) k/uL PT (10.0-12.5) sec INR (<1.2) APTT (22.0-30.0) sec Sodium (137-145) mmol/L Potassium (3.5-5.1) mmol/L Chloride (98-107) mmol/L Carbon Dioxide (22-30) mmol/L Anion Gap mmol/L BUN (9-20) mg/dL Creatinine (0.66-1.25) mg/dL Est GFR (CKD-EPI)AfAm (>60 ml/min/1.73 sqM) Est GFR (CKD-EPI)NonAf (>60 ml/min/1.73 sqM) Glucose (74-99) mg/dL Calcium (8.4-10.2) mg/dL Magnesium (1.6-2.3) mg/dL Total Bilirubin (0.2-1.3) mg/dL AST (17-59) U/L ALT (4-49) U/L Alkaline Phosphatase (38-126) U/L Troponin I 0.033 (0.000-0.034) ng/mL Total Protein (6.3-8.2) g/dL Albumin (3.5-5.0) g/dL Disposition Clinical Impression: Hypertension, GERD (gastroesophageal reflux disease) Disposition: HOME SELF-CARE Condition: Good Instructions (If sedation given, give patient instructions): GERD (Gastroesophageal Reflux Disease) (ED), Hypertension (ED) Prescriptions: Famotidine [Pepcid] 20 mg PO BID #60 tablet Pantoprazole [Protonix] 40 mg PO DAILY #30 tab Is patient prescribed a controlled substance at d/c from ED?: No Referrals: Nonstaff,Physician [Primary Care Provider] - 1-2 days Time of Disposition: 14:10
--- NOTE | 2024-09-13 12:03 | XR ---
EXAMINATION TYPE: XR chest 2V DATE OF EXAM: 09/13/2024 11:59 AM COMPARISON: 06/25/2022 CLINICAL INDICATION: Male, 64 years old with history of dysrhythmia, TECHNIQUE: XR chest 2V view(s) obtained. FINDINGS: The heart size is normal. The pulmonary vasculature is normal. The lungs are clear. Sternotomy wires from prior CABG is evident. IMPRESSION: 1. No acute pulmonary process. [facility], , 09/13/2024 12:01 PM
[2024-09-13] MEDS: PANTOPRAZOLE 40 MG/10 ML VIAL IVP STA (12:13)
[2024-09-13] MEDS: FAMOTIDINE 20 MG/2 ML VIAL IV STA (12:16)
[2024-09-13 12:18] LABS: Basophils # (A) 0.1 k/uL (0-0.2); Basophils % (A) 1 %; Eosinophils # (A) 0.1 k/uL (0-0.7); Eosinophils % (A) 1 %; HCT 54.2 % (39.0-53.0); HGB 18.7 gm/dL (13.0-17.5); Lymphocytes # (A) 1.4 k/uL (1.0-4.8); Lymphocytes % (A) 16 %; MCH 33.8 pg (25.0-35.0); MCHC 34.5 g/dL (31.0-37.0); MCV 98.2 fL (80.0-100.0); Mean Platelet Volume 8.4; Monocytes # (A) 0.4 k/uL (0-1.0); Monocytes % (A) 5 %; Neutrophils # (A) 6.6 k/uL (1.3-7.7); Neutrophils % (A) 76 %; Platelet Count 257 k/uL (150-450); RBC 5.52 m/uL (4.30-5.90); WBC 8.7 k/uL (3.8-10.6)
[2024-09-13 12:35] LABS: ALT 18 U/L (4-49); AST 28 U/L (17-59); African American GFR (CKD) 47 (>60 ml/min/1.73 sqM); Albumin 3.9 g/dL (3.5-5.0); Alkaline Phosphatase 97 U/L (38-126); Anion Gap 7 mmol/L; Blood Urea Nitrogen 34 mg/dL (9-20); Carbon Dioxide 35 mmol/L (22-30); Chloride 98 mmol/L (98-107); Glucose 99 mg/dL (74-99); Magnesium 1.6 mg/dL (1.6-2.3); Non-African American GFR(CKD) 41 (>60 ml/min/1.73 sqM); Potassium 3.3 mmol/L (3.5-5.1); Sodium 140 mmol/L (137-145); Total Protein 7.2 g/dL (6.3-8.2)
[2024-09-13 12:53] LABS: INR 1.1 (<1.2); Partial Thromboplastin Time 22.8 sec (22.0-30.0); Prothrombin Time 11.6 sec (10.0-12.5)
[2024-09-13 14:08] VITALS: BP 129/80; PULSE 61; RESP 18
[2024-09-13] MEDS: hydroCHLOROthiazide 12.5 MG CAP PO STA (14:09)
== END 2024-09-13 14:28 | disposition home or self-care (01) ==
LOC: EC 10:09
DX: I12.9 Hypertensive chronic kidney disease with stage 1 through stage 4 chronic kidney disease, or unspecified chronic kidney disease (principal); K21.9 Gastro-esophageal reflux disease without esophagitis; N18.30 Chronic kidney disease, stage 3 unspecified; F17.200 Nicotine dependence, unspecified, uncomplicated; Z79.899 Other long term (current) drug therapy; Z88.5 Allergy status to narcotic agent; Z95.1 Presence of aortocoronary bypass graft
CPT/HCPCS: 36415; 93005; 80053; 83735; 84484; 85025; 85610; 85730; 71046; 99285; 96374; 96375; J3490; J2470